=== PATIENT | female | born 1990 | race African-American/Black ===

== ENCOUNTER 2024-12-17 14:27 | Emergency (ER) | payer BC ==
[2024-12-17] MEDS ORDERED: Dexamethasone 10 MG/ML VIAL ONE (15:48)
== END 2024-12-17 16:38 | disposition home or self-care (01) ==
LOC: CSHERS 14:27
DX: J02.9 Acute pharyngitis, unspecified (principal)
CPT/HCPCS: 87081; 87428; 87430; 99283; J1100